=== PATIENT | female | born 1960 | race Caucasian/White ===

== ENCOUNTER 2022-12-12 17:11 | Emergency (ER) | payer BC | END 2022-12-12 21:50 | disposition home or self-care (01) | LOC: JD.ED 17:11 | DX: M71.22 Synovial cyst of popliteal space [Baker], left knee (principal); M25.562 Pain in left knee; M19.90 Unspecified osteoarthritis, unspecified site; Z79.899 Other long term (current) drug therapy; Z88.0 Allergy status to penicillin; Z88.5 Allergy status to narcotic agent | CPT/HCPCS: 93971-26-LT; 93971-LT; 99283 ==